=== PATIENT | male | born 1975 | race Caucasian/White ===

== ENCOUNTER → 2016-06-25 | Outpatient (CLI) | payer BC ==
--- NOTE | 2016-07-01 18:38 | CR ---
EXAMINATION: Left ankle HISTORY: Pain COMPARISON: None TECHNIQUE: 3 views FINDINGS/IMPRESSION: There is no acute osseous abnormality, dislocation, or fracture identified. Bon e mineralization and joint spaces appear preserved. Soft tissue swelling is noted overlying the medi al malleolus. There is a well-corticated ossific density noted inferior to the medial malleolus, lik dacia secondary to an old injury.
== END ==
LOC: MW.CHORTHO 07:57
PROVIDERS: ATTEND Physician Assistant
DX: M25.571 Pain in right ankle and joints of right foot (principal); M79.89 Other specified soft tissue disorders
CPT/HCPCS: 73610-26-LT; 73610-LT

== ENCOUNTER 2019-07-23 19:35 | Emergency (ER) | payer BC, OTHER ==
[2019-07-23] MEDS ORDERED: Sodium Chloride 0.9% 1,000 ML IV ONE (20:16)
[2019-07-23] MEDS ORDERED: Meclizine 25 MG Tab PO ONE (20:17)
[2019-07-23 20:39] LABS: BLOOD UREA NITROGEN,BUN 21 mg/dL (7.0-18.0); CARBON DIOXIDE,CO2 25.5 mmol/L (21.0-32.0); CHLORIDE,CL 102 mmol/L (98-107); GLUCOSE RANDOM 128 mg/dL (74-106); POTASSIUM,K 4.3 mmol/L (3.5-5.1); SODIUM,NA 139 mmol/L (136-148)
--- NOTE | 2019-07-23 20:48 | CT ---
Head CT Technique: Multiple axial sections through the brain were obtained. Intravenous contrast was not utilized. Comparison: No prior intracranial imaging is available. Findings: Ventricles along with basal cisterns and sulci over the convexities appear within normal limits for the patient's age. No abnormal parenchymal densities are seen. No evidence of intracranial hemorrhage. No midline shift or mass-effect is seen. Bone window settings were reviewed which shows no acute calvarial abnormality. Mucosal thickening is seen within the left mastoid sinus which causes almost complete opacification. Right mastoid sinus is clear. Visualized paranasal sinuses show nothing acute. Impression: 1. Near complete opacification of the left mastoid sinus. Please correlate if patient has any symptoms to suggest mastoiditis. 2. No acute intracranial abnormality is otherwise seen. Diagnostic code #3 This report was dictated in MDT
--- NOTE | 2019-07-23 20:51 | CR ---
Chest: Portable view of the chest was obtained. Comparison: No prior chest imaging is available. Heart size and mediastinum are normal. Linear density within the right lung base is seen. Lungs otherwise are clear. Bony structures are grossly intact. Impression: 1. Linear atelectasis or scarring within the right lung base. 2. Nothing acute is otherwise seen on portable chest x-ray. Diagnostic code #2 This report was dictated in MDT
--- NOTE | 2019-07-23 21:29 | EDM.PDOC ---
ED HPI GENERAL MEDICAL PROBLEM - General Chief Complaint: General Stated Complaint: HEAD PAIN , VISION GOING IN AND OUT Time Seen by Provider: 07/23/19 19:53 Source of Information: Reports: Patient History Limitations: Reports: No Limitations - History of Present Illness INITIAL COMMENTS - FREE TEXT/NARRATIVE: This 44-year-old male presents the emergency room with a chief complaint of room spinning nausea vomiting difficulty walking. Has had chills and weakness. History of ruptured eardrum in May. Patient follows an ENT at [place] . Dr. Harris. Onset: Today Duration: Hour(s): Location: Reports: Head Quality: Reports: Ache, Pressure Severity: Moderate Worsens with: Reports: Movement Associated Symptoms: Reports: No Other Symptoms, Fever/Chills, Weakness - Related Data Allergies Allergy/AdvReac Type Severity Reaction Status Date / Time No Known Allergies Allergy Verified 07/23/19 19:45 Home Meds: Home Meds Lisinopril [Zestril] mg PO DAILY 07/23/19 [History] amLODIPine [Norvasc] mg PO DAILY 07/23/19 [History] Past Medical History Cardiovascular History: Reports: Hypertension - Infectious Disease History Infectious Disease History: Reports: Chicken Pox - Past Surgical History GI Surgical History: Reports: Other (See Below) Other GI Surgeries/Procedures: sigmoid colon removed Social & Family History - Tobacco Use Smoking Status *Q: Never Smoker - Caffeine Use Caffeine Use: Reports: Soda - Recreational Drug Use Recreational Drug Use: No ED ROS GENERAL - Review of Systems Review Of Systems: See Below Constitutional: Reports: Chills, Malaise, Weakness HEENT: Reports: No Symptoms Respiratory: Reports: No Symptoms Cardiovascular: Reports: No Symptoms Endocrine: Reports: No Symptoms GI/Abdominal: Reports: No Symptoms : Reports: No Symptoms Musculoskeletal: Reports: No Symptoms Skin: Reports: No Symptoms Neurological: Reports: Dizziness, Syncope, Weakness Psychiatric: Reports: No Symptoms Hematologic/Lymphatic: Reports: No Symptoms Immunologic: Reports: No Symptoms ED EXAM, GENERAL - Physical Exam Exam: See Below Exam Limited By: No Limitations General Appearance: Alert, WD/WN, No Apparent Distress Eye Exam: Bilateral Eye: Normal Fundi, Normal Inspection Ear Exam: Bilateral Ear: Auricle Normal, Canal Normal Nose: Normal Inspection, Normal Mucosa Neck: Normal Inspection Respiratory/Chest: No Respiratory Distress, No Accessory Muscle Use Cardiovascular: Normal Peripheral Pulses (Male) Exam: No Hernia, Deferred Rectal (Males) Exam: Deferred Neurological: Alert, Oriented, CN II-XII Intact Psychiatric: Normal Affect Skin Exam: Warm, Dry, Intact Course - Vital Signs Text/Narrative:: 44-year-old male presents the emergency room chief complaint of vertiginous symptoms with difficulty seeing and walking. Patient found to have acute mastoiditis of the left ear. I have discussed this case with Dr. 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 He would like the patient start on antibiotics and call his office in the morning for appointment. Patient will be given VanComycin and started on Augmentin to go home with. He also asked me to give him some steroids Last Recorded V/S: Last Vital Signs Temp 96.3 F L 07/23/19 19:46 Pulse 74 07/23/19 20:44 Resp 15 07/23/19 20:44 BP 124/82 07/23/19 20:44 Pulse Ox 97 07/23/19 20:44 - Orders/Labs/Meds Orders: Active Orders 24 hr Category Date Time Status EKG 12 Lead [EKG Documentation Completion] [RC] STAT Care 07/23/19 19:55 Active Sodium Chloride 0.9% [Normal Saline] 1,000 ml Med 07/23/19 20:16 Active IV .Bolus Medication Orders Sodium Chloride (Normal Saline) 1,000 mls @ 1,000 mls/hr IV .Bolus ONE Stop: 07/23/19 21:15 Last Admin: 07/23/19 20:50 Dose: 1,000 mls/hr Labs: Laboratory Tests 07/23/19 07/23/19 Range/Units 19:50 19:50 WBC 13.24 H (4.0-11.0) K/uL RBC 5.98 H (4.50-5.90) M/uL Hgb 17.3 H (13.0-17.0) g/dL Hct 50.1 H (38.0-50.0) % MCV 83.8 (80.0-98.0) fL MCH 28.9 (27.0-32.0) pg MCHC 34.5 (31.0-37.0) g/dL RDW Std Deviation 39.9 (28.0-62.0) fl RDW Coeff of Kiah 13 (11.0-15.0) % Plt Count 234 (150-400) K/uL MPV 11.50 (7.40-12.00) fL Neut % (Auto) 86.6 H (48.0-80.0) % Lymph % (Auto) 8.5 L (16.0-40.0) % [place] % (Auto) 4.6 (0.0-15.0) % Eos % (Auto) 0.2 (0.0-7.0) % Baso % (Auto) 0.1 (0.0-1.5) % Neut # (Auto) 11.5 H (1.4-5.7) K/uL Lymph # (Auto) 1.1 (0.6-2.4) K/uL [place] # (Auto) 0.6 (0.0-0.8) K/uL Eos # (Auto) 0.0 (0.0-0.7) K/uL Baso # (Auto) 0.0 (0.0-0.1) K/uL Nucleated RBC % 0.0 /100WBC Nucleated RBCs # 0 K/uL Sodium 139 (136-148) mmol/L Potassium 4.3 (3.5-5.1) mmol/L Chloride 102 (98-107) mmol/L Carbon Dioxide 25.5 (21.0-32.0) mmol/L BUN 21 H (7.0-18.0) mg/dL Creatinine 1.1 (0.8-1.3) mg/dL Est Cr Clr Drug Dosing 82.05 mL/min Estimated GFR (MDRD) > 60.0 ml/min Glucose 128 H (74-106) mg/dL Calcium 9.4 (8.5-10.1) mg/dL Total Bilirubin 0.7 (0.2-1.0) mg/dL AST 14 L (15-37) IU/L ALT 35 (14-63) IU/L Alkaline Phosphatase 87 (46-116) U/L Troponin I < 0.050 (0.000-0.056) ng/mL Total Protein 8.2 (6.4-8.2) g/dL Albumin 4.4 (3.4-5.0) g/dL Globulin 3.8 (2.6-4.0) g/dL Albumin/Globulin Ratio 1.2 (0.9-1.6) Meds: Medications Generic Name Dose Route Start Last Admin Trade Name Freq PRN Reason Stop Dose Admin Sodium Chloride 1,000 mls @ 1,000 mls/hr 07/23/19 20:16 07/23/19 20:50 Normal Saline IV 07/23/19 21:15 1,000 mls/hr .Bolus ONE Administration Discontinued Medications Generic Name Dose Route Start Last Admin Trade Name Freq PRN Reason Stop Dose Admin Vancomycin HCl 1.5 gm/ Premix 300 mls @ 300 mls/hr 07/23/19 20:58 IV 07/23/19 20:59 ONETIME ONE Meclizine HCl 25 mg 07/23/19 20:17 07/23/19 20:50 Antivert PO 07/23/19 20:18 25 mg ONETIME ONE Administration Departure - Departure Time of Disposition: 21:31 Disposition: Home, Self-Care 01 Condition: Good Clinical Impression: Mastoiditis of left side - Discharge Information Referrals: Tee Kaye MD [Primary Care Provider] - Additional Instructions: Take your medication as prescribed. Follow-up with Dr.Knoles [facility] in the morning for improvement. Off work untill cleared by ENT Sepsis Event Note - Evaluation Sepsis Screening Result: No Definite Risk - Focused Exam Vital Signs: Vital Signs Temp Pulse Resp BP Pulse Ox 07/23/19 20:44 74 15 124/82 97 07/23/19 19:46 96.3 F L 70 16 148/101 H 93 L Date Exam was Performed: 07/23/19 Time Exam was Performed: 21:09 - My Orders Last 24 Hours: My Active Orders 07/23/19 19:55 EKG 12 Lead [EKG Documentation Completion] [RC] STAT 07/23/19 20:16 Sodium Chloride 0.9% [Normal Saline] 1,000 ml IV .Bolus - Assessment/Plan Last 24 Hours: My Active Orders 07/23/19 19:55 EKG 12 Lead [EKG Documentation Completion] [RC] STAT 07/23/19 20:16 Sodium Chloride 0.9% [Normal Saline] 1,000 ml IV .Bolus
[2019-07-23] MEDS ORDERED: methylPREDNISolone Sodium Succinate 125 MG/2 ML SDV IVPUSH SCH ×2 (21:30→22:15)
[2019-07-23] MEDS ORDERED: methylPREDNISolone Sodium Succinate 125 MG/2 ML SDV IVPUSH ONE (22:04)
== END 2019-07-23 22:43 | disposition home or self-care (01) ==
LOC: MW.ED 19:35
DX: H70.92 Unspecified mastoiditis, left ear (principal); I10 Essential (primary) hypertension
CPT/HCPCS: 36415; 70450; 71045; 80053; 84484; 85025; 93005; 96365; 96375; 99285; A9270; J2930; J3370; J7030